=== PATIENT | female | born 1950 | race Caucasian/White ===

== ENCOUNTER → 2016-10-09 | Outpatient (CLI) | payer MEDICARE ==
[~2016-10-09] MED LIST: BACTRIM DS 8001 TA1 PO; BP MED PO; CLARITIN 10MG T10 MG PO; CULTURELLE10 Billion PO; DIPHENHYDRAMINE PO; FLAGYL 500MG.500 MG PO; FLAGYL500 MG PO; LISINOPRIL 10MG10 MG PO; LISINOPRIL10 MG PO; LODINE200 MG PO; LORATADINE10 M1 PO; LORTAB 5/500 501 TAB PO; MEDROL 4MG. DOSE4 MG PO; METRONIDAZOLE500 MG PO; MIRALAX(PO17 GM/1 PA PO; MUCINEX600 M1 PO; PHENERGAN 25MG.25 M1 PO; PREDNICOT20 MG PO; PRILOSEC OTC20 MG PO; SALMETEROL-F28 PUFFS IN; SINGULAIR 10 MG10 MG PO; VANCOCIN HCL P250 MG PO; VENTOLIN H0.09 MG/AC IH; VERAPAMIL120 MG PO; ZOFRAN4 MG PO
== END ==
LOC: LAB 15:46
DX: R10.9 Unspecified abdominal pain (principal)